=== PATIENT | male | born 1950 | race Caucasian/White ===

== ENCOUNTER 2018-12-16 10:54 | Outpatient (CLI) | payer MEDICARE, BC ==
--- NOTE | 2018-12-16 16:24 | RAD ---
TWO VIEWS OF THE LUMBAR SPINE: DATE: 12/16/2018. COMPARISON: None. HISTORY: Postsurgical evaluation of the lumbar spine. 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 There are left-sided L5 and S1 pedicle screws with a vertically oriented interlocking felicia. Numer ous cutaneous nicholas are noted posteriorly. Bilateral laminectomy changes at L3, L4, and L5 noted. Multilevel disk space narrowing throughout the lumbar spine with multilevel degenerative end plate c hange and anterior osteophyte formation noted. There is minimal retrolisthesis at L4-5. No acute fracture or evidence or evidence of hardware failu re. IMPRESSION: Degenerative and postoperative changes of the lumbar spine as detailed above. POS: [facility]
== END 2018-12-16 10:55 | disposition home or self-care (01) ==
LOC: TBSIIMAG 10:54
PROVIDERS: ATTEND Neurological Surgery
DX: M47.26 Other spondylosis with radiculopathy, lumbar region (principal); Z98.890 Other specified postprocedural states
CPT/HCPCS: 72100

== ENCOUNTER 2019-02-03 14:57 | Outpatient (CLI) | payer MEDICARE, BC ==
--- NOTE | 2019-02-03 15:15 | RAD ---
EXAM: Lumbar spine 2 views: HISTORY: Follow-up surgery COMPARISON: 12/16/2018 FINDINGS: Laminectomy changes with left-sided pedicle screws at L5 and S1. No evidence for acute fracture or dislocation involving the visualized spine. There are disc osteophytosis and facet arthrosis changes. Levoscoliosis, stable No evidence for a bone lesion. IMPRESSION: Spondylosis. No acute process. Stable appearance.
== END 2019-02-03 14:58 | disposition home or self-care (01) ==
LOC: TBSIIMAG 14:57
PROVIDERS: ATTEND Neurological Surgery
DX: M43.16 Spondylolisthesis, lumbar region (principal); M47.816 Spondylosis without myelopathy or radiculopathy, lumbar region; Z98.890 Other specified postprocedural states
CPT/HCPCS: 72100